=== PATIENT | female | born 2000 | race Caucasian/White ===

== ENCOUNTER 2023-08-17 09:41 | Outpatient (OUT) | payer OTHER, SELFPAY ==
--- NOTE | 2023-08-17 | XR_ITS ---
[facility] [id number] Patient Name: POOJA HARMON MRN: [id number] date: 2000 Sex: F Assigned Patient Location: Current Patient Location: Accession/Order Number: [id number] Exam Date: 08/17/2023 09:45 Report Date: 08/17/2023 16:02 At the request of: JUDITH ROJAS Procedure: XR ankle ELLY min 3V PROCEDURE: XR ankle ELLY min 3V HISTORY: BILATERAL ANKLE PAIN after falling; left greater than right COMPARISON: XR ankle bilateral 04/22/2021 FINDINGS: BONES:No fracture, acute abnormality, or significant arthropathy. Stable subtle area of sclerosis or cortical thickening involving posterior distal left tibial diaphysis of questionable clinical significance. SOFT TISSUES:No visible soft tissue swelling. EFFUSION:None visible. OTHER: Negative. XR/XR ankle ELLY min 3V IMPRESSION: 1. No acute bone abnormality. 2. Stable appearance of the ankles. Electronically authenticated by: CATE GRIFFIN Date: 08/17/2023 16:02
== END 2023-08-17 09:42 | disposition home or self-care (01) ==
LOC: EC 09:43
PROVIDERS: Visit Provider Podiatrist Foot & Ankle Surgery
DX: M25.571 Pain in right ankle and joints of right foot (principal); M25.572 Pain in left ankle and joints of left foot
CPT/HCPCS: 73610

== ENCOUNTER 2024-05-23 09:24 | Outpatient (OUT) | payer OTHER, SELFPAY ==
--- NOTE | 2024-05-23 09:45 | XR_ITS ---
[facility] [id number] Patient Name: POOJA HARMON MRN: [id number] date: 2000 Sex: F Assigned Patient Location: [facility] Current Patient Location: [facility] Accession/Order Number: [id number] Exam Date: 05/23/2024 09:35 Report Date: 05/23/2024 18:16 At the request of: JUDITH ROJAS Procedure: XR ankle ELLY min 3V EXAM: XR ankle ELLY min 3V HISTORY: Bilateral Ankle Pain COMPARISON: 08/17/2023. TECHNIQUE: Routine bilateral weightbearing views of the ankle were obtained. FINDINGS/IMPRESSION: There is no evidence of acute fracture, subluxation, significant degenerative or erosive changes. Stable appearance of the ankle joint is noted. If the patient remains symptomatic need for further evaluation with MRI can be determined clinically. Electronically authenticated by: HAMIDA BURRIS Date: 05/23/2024 18:16
== END 2024-05-23 09:25 | disposition home or self-care (01) ==
LOC: RAD 09:24
PROVIDERS: Visit Provider Podiatrist Foot & Ankle Surgery
DX: M25.572 Pain in left ankle and joints of left foot (principal); M25.571 Pain in right ankle and joints of right foot
CPT/HCPCS: 73610